=== PATIENT | male | born 1975 ===

== ENCOUNTER 2024-12-24 14:59 | Outpatient (AMB) | payer OTHER, SELFPAY ==
--- NOTE | 2024-12-24 15:02 | MHC.OFFWIV ---
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 Patient Tobacco Use Status: Never used Tobacco Allergies penicillin G Adverse Reaction (Mild, Verified 12/24/24 15:07) Unknown Do you need a note to return to daycare/school/sports/work: No HPI HPI Comments History of Present Illness Details History of Present Illness - The patient is a 49-year-old male presenting for management of medications regarding anxiety associated with long flights. 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 [place] and [place] not RX over telehealth. - The patient manages episodes of anxiety primarily during travel through the use of alprazolam, reducing its usage by taking 1/2 of a 5mg pill. - The patient is preparing for potential anxiety-associated events requiring alprazolam when flying to locations like [facility] and [place]. - No adverse reactions to alprazolam have been mentioned, although the patient remains cautious about long-term dependency. - Zolpidem has also been used effectively in the past for achieving rest, especially in preparation for early missions or difficult flights. - Frequent travel, particularly air travel, escalates anxiety, necessitating management strategies. Physical Exam General: Cooperative, healthy appearing, comfortable, no acute distress and well developed Orientation: Patient oriented x3 Limitations: No limitations Head: Normal to inspection Ears: Hearing grossly normal bilaterally Nose: Normal external nose present Face and sinus: Normal facial exam Eyes: Appearance normal, both eyes and all related structures Neck: Normal visual inspection and Yes full ROM Respiratory: Normal respiratory effort and able to speak in complete sentences. Skin: No rashes or lesions noted Neuro: Patient oriented x3 Extremities: Normal to inspection PFSH Social History Patient Tobacco Use Status: Never used Tobacco Review of Systems Const All systems reviewed & are unremarkable except as noted in HPI and below Physical Exam Vital Signs: Last Vital Signs Pulse 70 12/24/24 15:06 BP 120/82 12/24/24 15:06 Pulse Ox 98 12/24/24 15:06 Oxygen Delivery Method Room Air 12/24/24 15:06 Assessment & Plan Assessment & Plan (1) Anxiety with flying: Code(s): F40.243 - Fear of flying Plan: To manage the patient's anxiety related to travel, I will provide a prescription for zolpidem, with an awareness of his responsible management history, and ensure against the mixing of zolpidem with alcohol or other substances to prevent complications. I will emphasize limitations on the medication's use, strictly according to prescription. I'll direct the medication order to the patient's chosen pharmacy, optimizing access ahead of his scheduled international travel. Patient was informed and verbally consented to the use of an ambient scribe for clinic note documentation during this visit. Medications: New zolpidem (Ambien) 5 mg PO BEDTIME PRN 10 tabs 0RF sleep Coding Level of Care Code New Pt Level 3 (43474) Diagnoses Anxiety with flying F40.243
[2024-12-24 15:06] VITALS: BP 120/82; PULSE 70; O2SAT 98
== END 2024-12-24 15:21 | disposition home or self-care (01) ==
PROVIDERS: Visit Provider Physician Assistant
DX: F40.243 Fear of flying (principal)

== ENCOUNTER → 2024-12-24 14:59 | Outpatient (BNVA) | payer OTHER, SELFPAY | PROVIDERS: Visit Provider Physician Assistant ==

== ENCOUNTER 2025-01-13 10:30 | Outpatient (AMB) | payer OTHER, SELFPAY ==
--- NOTE | 2025-01-13 10:45 | MHC.OFFWIV ---
Intake Vital Signs 01/13/25 10:56 Weight 188 lb BP 138/90 H Blood Pressure Location Lt brachial Position Sitting Pulse 88 Pulse Source Pulse Oximeter Pulse Oximetry (%) 97 Oxygen Delivery Method Room Air Intake Visit Reasons: EP-rt side lwr back pain-doing yoga Intake Note: Patient here for right sided lower back pain that started saturday after doing yoga and is worsening every day. 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 Last week he decided to get into yoga and lift Started to see increase in back pain over weekend Saturday/Saturday worse Standing makes it better, Moving makes worse R sided mid to lower back into glute No radiation into legs Tried warm compress, Motrin 800mg without relief No incontinence No abdominal pain, blood in urine or stool complaints Denies abdominal pain, chest pain or SOB PFSH Social History Patient Tobacco Use Status: Never used Tobacco Review of Systems Const Denies chills and Denies fever(s) Card Denies chest pain and Denies dyspnea Resp Denies cough and Denies dyspnea GI Denies abdominal pain, Denies constipation and Denies diarrhea Denies hematuria and Denies urinary incontinence Musc Reports back pain, Denies numbness, Denies radiating pain into limb and Denies tingling Skin/Breast Denies rash Neuro Denies numbness, Denies tingling and Denies paresthesias Physical Exam Vital Signs: Last Vital Signs Pulse 88 01/13/25 10:56 BP 138/90 H 01/13/25 10:56 Pulse Ox 97 01/13/25 10:56 Oxygen Delivery Method Room Air 01/13/25 10:56 General: Non-toxic, standing uncomfortably shifting from foot to foot. Talking to full sentences. Skin: Warm dry throughout. No posterior back or R superior gluteal region erythema, ecchymosis, vesicular lesions or rash Eye: EOMI Respiratory: CTA bilaterally. No wheezes, rales or rhonchi. Breath sounds throughout Cardiac: RRR. No murmur. No calf tenderness or pedal edema bilaterally. MSK: No midline spinal ttp from cervical-lumbar spine. + has tenderness to palpation R lumbar paravertebral muscles and R gluteal region. + pain with hip flexion R side less than 90 degrees. + full fkexion L hip to chest in standing position. 5/5 strength dorsal flexion great toe bilaterally. Slow gait on exam Neurology: Alert. No aphasia or facial droop. Gait without abnormality Psych: Good mood and affect Assessment & Plan Assessment & Plan (1) Back pain: Code(s): M54.9 - Dorsalgia, unspecified Qualifiers: Back pain location: low back pain Chronicity: acute Back pain laterality: right Sciatica presence: without sciatica Qualified Code(s): M54.50 - Low back pain, unspecified Plan: Patient seen and evaluated. No midline spinal tendeness, falls or red flag signs of concern neuro abnormality Pain is muscle related Discussed Prednisone x 5 days (no alcohol or NSAIDs. Take with food) RObaxin (lethargy, no alcohol or driving) Tylenol prn Warm compress Gentle ROM PT referral given Discussed ER s/s that warrant emergent eval Patient gave verbal understanding and had no additional questions or concerns at time of discharge All questions answered Orders: Orders PT Evaluation and Treatment Today M54.9 - Dorsalgia, unspecified Medications: New methocarbamol 750 mg PO Q8H 14 tabs 0RF prednisone 40 mg (2 x 20 mg) PO DAILY 10 tabs 0RF acetaminophen 1-2 capsules if needed 500 mg PO Q6H PRN 14 caps 0RF pain Coding Level of Care Code Est Pt Level 3 (68228) Diagnoses Acute right-sided low back pain without sciatica M54.50 Back pain location: low back pain Chronicity: acute Back pain laterality: right Sciatica presence: without sciatica
[2025-01-13 10:56] VITALS: BP 138/90; PULSE 88; O2SAT 97
--- OUTSIDE RECORDS SUMMARY | 2025-01-13 12:17 | XMS_ITS | Encounter Summary ---
Author Organization [facility] Address [address] [place] [address] Care Team Providers Care Rn Admission Name Role Phone Pcp, Jovany AYERS Primary Care Provider Unavailabl e Encounter Details Date Type Department Care Team (Late st Contact Info) Description 2022 Scan Only [facility] - Dermatology Oncology [address] - [place] [address] Provider, Generic [facility] Social History Tobacco Use Types Packs/Day Years Used Date Smoking Tobacco: Never Assessed Sex and Gender Information Value Date Recorded Sex Assigned at Not on file Legal Sex Male 1:42 PM EST Gender Identity Not on file Sexual Orientation Not on file documented as of this encounter Plan of Treatment Not on file documented as of this encounter Procedures Procedure Name Priority Date/Time Associated Diagnosis Comments OUTSIDE PATHOLOGY SCAN 2022 11:57 AM EST documented in this encounter Results * OUTSIDE PATHOLOGY SCAN (2022 11:57 AM EST) Generic [facility] Provider IMG DIAGNOSTIC IMAGING ORDXi RABLES Final Result documented in this encounter Visit Diagnoses Not on filedocumented in this encounter Care Teams Rn Admission Relationship Specialty Start Date End Date Pcp, MD Jovany PCP - General 02/06/22 documented as of this encounter
--- OUTSIDE RECORDS SUMMARY | 2025-01-13 12:17 | XMS_ITS | Clinical Summary ---
Author Organization [facility] Address [address] [place] [address] Care Team Providers Care Malt House Kiln Operator Name Role Phone Pcp, None MD Primary Care Provider Unavailabl e Allergies Active Allergy Reactions Criticality Noted Date Comments Penicillins Rash Low 09/07/2016 Medications ibuprofen (ADVIL) 800 MG tablet Take 1 tablet by mouth 3 (three) times daily NEEDED 10/21/2020 Active ondansetron (ZOFRAN) 4 MG tablet NEEDED 09/16/2021 Active zolpidem (AMBIEN) 5 MG tablet 04/20/2021 Active zolpidem (AMBIEN) 5 MG tablet Take 5 mg by mouth 04/20/2021 Active Active Problems No known active problems Social History Tobacco Use Types Packs/Day Years Used Date Smoking Tobacco: Never Smokeless Tobacco: Never Alcohol Use Standard Drinks/Week Comments Yes 6 (1 standard drink = 0.6 oz pur e alcohol) Moderately Sex and Gender Information Value Date Recorded Sex Assigned at Not on file Legal Sex Male 1:42 PM EST Gender Identity Not on file Sexual Orientation Not on file Last Filed Vital Signs Vital Sign Reading Time Taken Comments Blood Pressure 110/67 08/27/2022 9:10 AM EDT Pulse 68 08/27/2022 9:10 AM EDT Temperature 36.7 ??C (98 ??F) 08/27/2022 9:10 AM EDT Respiratory Rate 16 08/27/2022 9:10 AM EDT Oxygen Saturation 98% 08/27/2022 9:10 AM EDT Inhaled Oxygen Concentration - - Weight 86.2 kg (190 lb) 08/27/2022 9:10 AM EDT Height 182.9 cm (6') 08/27/2022 9:10 AM EDT Body Mass Index 25.77 08/27/2022 9:10 AM EDT Plan of Treatment Not on file Insurance [facility] CHOICE [facility] [address] [id number] [address] [id number] [address] [id number] Care Teams Malt House Kiln Operator Relationship Specialty Start Date End Date Pcp, None, PCP - General 02/06/22
--- OUTSIDE RECORDS SUMMARY | 2025-01-13 12:17 | XMS_ITS | Encounter Summary ---
Author Organization [facility] Address [address] [place] [address] Care Team Providers Care Artist Woodblock Name Role Phone Pcp, Jovany AYERS Primary Care Provider Unavailabl e Encounter Details Date Type Department Care Team (Late st Contact Info) Description 03/12/2022 Scan Only [facility] - Dermatology Oncology [address] - [place] [address] Provider, Generic [facility] Social History Tobacco Use Types Packs/Day Years Used Date Smoking Tobacco: Never Smokeless Tobacco: Never Alcohol Use Standard Drinks/Week Comments Yes 0 (1 standard drink = 0.6 oz pur e alcohol) Sex and Gender Information Value Date Recorded Sex Assigned at Not on file Legal Sex Male 1:42 PM EST Gender Identity Not on file Sexual Orientation Not on file documented as of this encounter Functional Status * Are you deaf or do you have serious difficulty hearing? Answer Date of Assessment Author No 03/12/2022 10:33 AM Joseph Dykes * Are you blind or do you have serious difficulty seeing, even when wearing glasses? Answer Date of Assessment Author No 03/12/2022 10:33 AM Joseph Dykes * Do you have serious difficulty walking or climbing stairs? (5 years old or older) Answer Date of Assessment Author No 03/12/2022 10:33 AM Joseph Dykes documented as of this encounter Plan of Treatment Not on file documented as of this encounter Visit Diagnoses Not on filedocumented in this encounter Care Teams Artist Woodblock Relationship Specialty Start Date End Date Pcp, Jovany, PCP - General 02/06/22 documented as of this encounter
--- OUTSIDE RECORDS SUMMARY | 2025-01-13 12:17 | XMS_ITS ---
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
== END 2025-01-13 12:04 | disposition home or self-care (01) ==
PROVIDERS: Visit Provider Physician Assistant
DX: M54.50 Low back pain, unspecified (principal)